=== PATIENT | male | born 1985 | race African-American/Black ===

== ENCOUNTER 2020-06-13 16:25 | Emergency (ER) | payer BC, OTHER ==
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
[2020-06-13 16:42] VITALS: BP 113/82; PULSE 84; TEMP 97.8; BMI 25.7
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
[2020-06-13] MEDS ORDERED: ACETAMINOPHEN 325 MG TABLET (FP) PO ONE (17:47)
[2020-06-13] MEDS ORDERED: ACETAMINOPHEN 325 MG TABLET (FP) ONE (17:53)
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
--- NOTE | 2020-06-14 11:17 | EKG ---
Test Reason : Blood Pressure : / mmHG Vent. Rate : 065 BPM Atrial Rate : 065 BPM P-R Int : 140 ms QRS Dur : 092 ms QT Int : 390 ms P-R-T Axes : 014 049 049 degrees QTc Int : 405 ms NORMAL SINUS RHYTHM NORMAL ECG NO PREVIOUS ECGS AVAILABLE Confirmed by TATO PACK MD ([id number]) on 06/14/2020 11:16:39 AM Referred By: Confirmed By:TATO PACK MD
== END 2020-06-13 18:33 | disposition home or self-care (01) ==
LOC: JER 16:25
DX: R07.89 Other chest pain (principal); V89.2XXA Person injured in unspecified motor-vehicle accident, traffic, initial encounter
CPT/HCPCS: 71046-TC-FY; 93005; 93010; 99284-25